=== PATIENT | female | born 2000 | race Caucasian/White ===

== ENCOUNTER → 2021-04-12 | Day surgery (SDC) | payer OTHER ==
[~2021-04-12] MED LIST: CLARITIN10 MG PO; COLACE 100MG C100 MG PO; FEOSOL325 MG PO; HYDROCODON-ACE1 EAC4 PO; IBUPROFEN600 MG PO; LORTAB 5-325 M1 EACH PO; PRENATAL VITAM1 EAC8 PO; PROTONIX 40 MG40 M1 PO
== END | disposition home or self-care (01) ==
LOC: OR 09:20
DX: K80.64 Calculus of gallbladder and bile duct with chronic cholecystitis without obstruction (principal); Z88.8 Allergy status to other drugs, medicaments and biological substances; K21.9 Gastro-esophageal reflux disease without esophagitis; F41.9 Anxiety disorder, unspecified
CPT/HCPCS: 84703; J0690; J1100; J1170; J1885; J2001; J2250; J2405; J2704; J2710; J3010; J7030; J7040; J7120